=== PATIENT | female | born 1995 | race Caucasian/White ===

== ENCOUNTER 2017-09-04 21:31 | Emergency (ER) | payer SELFPAY ==
[~2017-09-04] VITALS: Ht 160 cm; Wt 51.8 kg
[2017-09-04 21:36] VITALS: BP 123/57; PULSE 86; RESP 18; TEMP 98.6; O2SAT 98
[2017-09-04] MEDS ORDERED: hydrOXYzine HCL 25 MG TAB PO ONE (22:00)
--- NOTE | 2017-09-04 22:25 | PD ---
HPI Chief Complaint: Skin Problem Time Seen by Provider: 21:45 Travel History International Travel<30 days: No Contact w/Intl Traveler<30days: No Traveled to known affect area: No History of Present Illness HPI Patient is a 22-year-old female who comes in complaining of itching of her skin as well as vaginal discharge. She says that since , she has noticed small dots on her skin that have been itching, she is concerned because they are in the webs of her hands and she is concerned she may have contracted scabies. She says that her family members are not experiencing any of these symptoms. She also has bumps on her abdomen and her back that are itching. She tried taking Benadryl once, but it made her nauseous, so she has not been taking it. She denies any new medications new soaps new detergents. She says the vaginal discharge has been going on for about a week. She says she thinks it is bacterial vaginosis as she has had this before and it is very similar. She denies any abdominal pain, nausea, vomiting. She denies any dysuria. Severity is mild. [facility] Past Medical History Medical History: Denies Significant Hx ?: Not LMP: now Past Surgical History Surgical History: No Previous Surgery Social History Alcohol Use: No Tobacco Use: No Substance Use: No Allergies-Medications (Allergen,Severity, Reaction): Coded Allergies: No Known Allergies (Unverified , 09/04/17) Review of Systems General / Constitutional: No: Fever, Chills HENT: No: Headaches, Lightheadedness Cardiovascular: No: Chest Pain or Discomfort Respiratory: No: Shortness of Breath Gastrointestinal: No: Nausea, Vomiting, Abdominal Pain Genitourinary: Positive: Discharge, No: Dysuria Musculoskeletal: No: Myalgias, Arthralgias Skin: Positive Rash, Positive Itching Neurologic: No: Weakness, Dizziness Physical Exam Narrative GENERAL: Awake and alert, in no acute distress. SKIN: Focused skin assessment warm/dry. Small papule is in the webbing of both hands. Urticaria on the abdomen. HEAD: Atraumatic. Normocephalic. EYES: Pupils equal and round. No scleral icterus. ENT: No signs of airway compromise. Mucous membranes pink and moist. CARDIOVASCULAR: Regular rate and rhythm. No murmur appreciated. RESPIRATORY: No accessory muscle use. Clear to auscultation. Breath sounds equal bilaterally. GASTROINTESTINAL: Abdomen soft, non-tender, nondistended. : Exam performed in the presence of a nurse. Thick white discharge. no CMT, no cervical lesions. MUSCULOSKELETAL: No obvious deformities. No clubbing. No cyanosis. No edema. NEUROLOGICAL: Awake and alert. No obvious cranial nerve deficits. Motor grossly within normal limits. Normal speech. Data Data Last Documented VS Vital Signs Date Time Temp Pulse Resp B/P (MAP) Pulse Ox O2 Delivery O2 Flow Rate FiO2 09/04/17 21:36 98.6 86 18 123/57 (79) 98 Orders Orders Hydroxyzine Hcl (Atarax) (09/04/17 22:00) Ed Urine Pregnancytest Poc (09/04/17 21:53) Gc And Chlamydia Pcr (09/04/17 22:04) Wet Prep Profile (09/04/17 22:04) Labs Laboratory Tests Test 09/04/17 22:10 [facility] Medical Decision Making Medical Screen Exam Complete: Yes Emergency Medical Condition: Yes Differential Diagnosis Scabies versus allergic reaction versus BV versus GC/chlamydia Narrative Course Patient is a 22-year-old female who comes in complaining of a rash and vaginal discharge. Exam shows appropriate in the webs of the fingers as well as urticaria to the stomach. Patient given a dose of hydroxyzine. Swab sent to test for GC and chlamydia as well as a wet prep. Patient will be discharged with prescriptions for Flagyl, promethazine, hydroxyzine. She is advised she needs to take care of her bedding to get rid of the possible scabies. Advised to follow-up with her erector operator. Advised return to the ED as needed for any worsening symptoms. Diagnosis Primary Impression: Scabies Additional Impressions: Allergic reaction Qualified Codes: T78.40XA - Allergy, unspecified, initial encounter Bacterial vaginosis Patient Instructions: Bacterial Vaginosis (ED), General Allergic Reaction (ED) , General Instructions, Scabies (ED) Additional Instructions: Follow-up with gynecology. Take all of the antibiotic. Do not drink alcohol while taking the antibiotic as it will make you sick. Return to the ED as needed for any worsening symptoms. Scripts Hydroxyzine HCl (Hydroxyzine HCl) 25 Mg Tab 25 MG PO TID Y for ITCHING for 5 Days, TAB 0 Refills Prov: Tasha Wang MD 09/04/17 Metronidazole (Flagyl) 500 Mg Tab 500 MG PO BID for Infection for 7 Days, #14 TAB 0 Refills Prov: Tasha Wang MD 09/04/17 Permethrin Topical 5% (Permethrin Topical 5%) 5% Cream 1 APPLIC TOPICAL ONCE for Scabies, #1 TUBE 0 Refills Prov: Tasha Wang MD 09/04/17 Disposition: 01 DISCHARGE HOME Condition: Stable Tasha Wang MD Sep 04, 2017 22:25
[2017-09-04] MEDS ORDERED: METR-1 PO (22:27)
[2017-09-04] MEDS ORDERED: HYDR-3133 PO (22:27)
[2017-09-04] MEDS ORDERED: PERM5CRE TOPICAL (22:27)
[2017-09-04 23:24] VITALS: BP 128/60
== END 2017-09-04 23:22 | disposition home or self-care (01) ==
LOC: PHED 21:31
DX: B86 Scabies (principal); T78.40XA Allergy, unspecified, initial encounter; N76.0 Acute vaginitis
CPT/HCPCS: 84703; 87210; 87491; 87591; 99283